=== PATIENT | female | born 1990 | race African-American/Black ===

== ENCOUNTER 2016-09-24 21:55 | Inpatient (IN) | payer OTHER ==
[2016-09-24] MEDS ORDERED: AMPICILLIN 2 GM/100 ML BAG (PRE-DOCKED) IVPB ONE (22:45)
[2016-09-24 23:04] LABS: BASOPHIL 0.2 % (0-2.0); EOSINOPHIL 0.7 % (0-4.5); MCH 29.4 pg (25.7-33.7); MCHC 32.6 g/dl (32.0-36.0); MEAN CELL VOLUME 90.2 fl (80-96); MEAN PLT VOLUME 10.4 fl (7.5-11.1); NEUTROPHILS 77.2 % (42.8-82.8); PLATELET COUNT 158 K/MM3 (134-434); RDW 16.6 % (11.6-15.6); WHITE BLOOD COUNT 11.9 K/mm3 (4.0-10.0)
[2016-09-24 23:15] LABS: INR 0.96 (0.82-1.09); PROTHROMBIN TIME (PATIENT) 10.6 SEC (9.98-11.88)
[2016-09-24] MEDS ORDERED: DEXTROSE 5%-LACTATED RINGERS 1,000 ML IV SCH (23:15)
[2016-09-24] MEDS ORDERED: PROMETHAZINE HCL 25 MG/1 ML VIAL IVPUSH ONE (23:15)
[2016-09-24] MEDS ORDERED: BUTORPHANOL TARTRATE 1 MG/ML VIAL IVPUSH ONE (23:15)
[2016-09-24 23:17] LABS: ACTIVATED PTT 33.5 SECONDS (26.9-34.4)
[2016-09-24 23:25] LABS: CALCIUM 8.9 mg/dL (8.5-10.1); CREATININE 0.6 mg/dL (0.55-1.02)
[2016-09-24 23:32] VITALS: BMI 26.1
[2016-09-24 23:54] LABS: URINE MARIJUANA THC NEGATIVE ng/ml (CUTOFF=50)
[2016-09-25] MEDS ORDERED: FENTANYL/BUPIVACAINE/NS/PF - PCEA - 50 ML DISP.SYRIN EP SCH ×2 (02:33→02:45)
[2016-09-25] MEDS: AMPICILLIN (PRE-DOCKED) 1 GM/100 ML BAG IVPB SCH ×2 (02:45→06:41)
[2016-09-25] MEDS ORDERED: CITRIC ACID/SODIUM CITRATE 30 ML UNIT-DOSE CUP PO ONE (03:00)
[2016-09-25] MEDS ORDERED: ELECTROLYTE-148 SOLN 500 ML IV SCH (03:00)
[2016-09-25] MEDS ORDERED: ELECTROLYTE-148 SOLN 1,000 ML IV SCH (03:30)
--- NOTE | 2016-09-25 08:54 | PN ---
Ante-Partal Exam - Subjective Subjective: Feeling uncomfortable, asking for a top off. Feeling painful contractions. Vital Signs: Vital Signs Temperature 98.4 F 09/25/16 07:00 Pulse Rate 80 09/25/16 08:30 Respiratory Rate 20 09/25/16 08:30 Blood Pressure 138/85 09/25/16 08:30 O2 Sat by Pulse Oximetry (%) 98 09/25/16 08:30 Bleeding: No Headache: No Visual changes: No Right upper quadrant pain: No - Contractions Contractions: Yes Regularity: Regular Intensity: Mod/Strong Monitor Mode: External - Exam during Labor Heart Rate: 145 Variability: Moderate Category: II Monitor Accelerations: Present Monitor Decelerations: None Exam: Vaginal Dilatation (cm): 6 Effacement (%): 90 Amniotic Membrane Status: Ruptured Nitrazine Test: Positive Amniotic Fluid: Clear Presentation: Vertex Station: -2 Remarks: 26 @ 40wk5d in active labor, TOLAC. occasional variable decel's overnight, overall status reassuring, cat 1 FHT. GBS positive on amp. s/p epidural, now requesting top off. AROM 810am, clear, small amount of fluid. -continue to monitor -anticipate
--- NOTE | 2016-09-25 09:00 | HP ---
Past Medical History - Primary Care Physician PCP:: [facility] - Admission Chief Complaint: Painful contractions starting at 5pm History of Present Illness: 26 @ 40wk4d with previous and C/S requesting TOLAC. +contractions, no LOF, VB, +FM. PNC [facility]. ANC c/b elevated 1.free bhcg (99%) on modified sequential screen. 2. left breast lump felt, s/p breast ultrasound, benign appearing GBS positive. Blood type A positive, RPR neg, HepB neg, Rubella Immune, Quant gold neg, HIV NR. SHA by ultrasound 09/20/2016. Prior FT LTCS for distress , prior FT . BTl papers signed, currently undecided. 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: No: Alzheimer's, CVA, Dementia, Migraine, Multiple Sclerosis, Peripheral Neuropathy, Parkinson's, Seizure, Syncope, TIA, Vertigo, Other Cardiovascular: No: AFIB, Aneurysm, Aortic Insufficiency, Aortic Stenosis, CAD, CHF, Deep Vein Thrombosis, HTN, Hyperlipdemia, NH, Mitral Insufficiency, Mitral Stenosis, Murmur, Pulmonary Hypertension, Other Pulmonary: No: Asthma, Bronchitis, Cancer, COPD, O2 Dependent, Pneumonia, Previously Intubated, Pulmonary Embolus, Pulmonary Fibrosis, Sleep Apnea, Other Gastrointestinal: No: Ascites, Cancer, Constipation, Crohn's Disease, Diverticulitis, Diverticulosis, Esophageal Varices, Gastritis, GERD, GI Bleed, Hemorrhoids, Hiatal Hernia, Inflamatory Bowel Disease, Irritable Bowel Disease, Pancreatitis, Peptic Ulcer Disease, Ulcerative Colitis, Other Hepatobiliary: No: Cirrhosis, Cholelithiasis, Cholecystitis, Choledocholithiasis , Hepatitis A, Hepatitis B, Hepatitis C, Other Renal/: No: Renal Failure, Renal Inusuff, BPH, Cancer, Hematuria, Hemodialysis , Neurogenic Bladder, Renal Calculi, UTI, Other Reproductive: No: Ectopic , Endometriosis, Fibroids, PID, Polycystic Ovary Syndrome, Postmenopausal, Other ...: 3 ...Para: 2 ...Term: 2 ...: 0 ...Spon : 0 ...Induced : 0 ...Multiple Gestation: 0 ...LMP: 11/24/15 ...EDC by Sono: 09/20/16 Heme/Onc: No: Anemia, B12 Deficiency, Bleeding Disorder, Cancer, Current Chemotherapy, Current Radiation Therapy, Hemochromatosis, Hypercoaguable State, Myeloproliferative Synd, Sickle Cell Disease, Sickle Cell Trait, Thrombocytopenia, Other Infectious Disease: No: AIDS, C-Diff, Herpes Zoster, HIV, MRSA, STD's, Tuberculosis, VREF, Other Musculoskeletal: No: Bursitis, Chronic low back pain, Hemiparesis, Hemiplegia, Osteoarthritis, Paraplegia, Other Rheumatology: No: Fibromyalgia, Gout, Lupus, Rheumatoid Arthritis, Sarcoidosis, Vasculitis, Other Endocrine: No: Juan's Disease, [place]'s Disease, Diabetes Insipidus, Diabetes Mellitus, Hyperparathyroidism, Hyperthyroidism, Hypothyroidism, Osteopenia, SIADH, Other Dermatology: No: Basal Cell, Cellulitis, Eczema, Melanoma, Psoriasis, Squamous Cell, Other - Past Surgical History Past Surgical History: Yes: Hx Myomectomy: No Hx Transabdominal Cerclage: No - Smoking History Smoking history: Former smoker Have you smoked in the past 12 months: Yes Aproximately how many cigarettes per day: 6 - Alcohol/Substance Use Hx Alcohol Use: No Home Medications - Allergies Allergies/Adverse Reactions: Allergies Allergy/AdvReac Type Severity Reaction Status Date / Time egg Allergy Mild Hives Verified 08/27/16 17:43 milk Allergy Mild Hives Verified 08/27/16 17:43 No Known Drug Allergies Allergy Verified 08/27/16 17:43 nuts Allergy Severe Itching Uncoded 08/27/16 17:43 - Home Medications Home Medications: Ambulatory Orders Vit/Iron Fumarate/FA [ Tablet] 1 each PO DAILY 02/09/16 Family Disease History - Family Disease History Family Disease History: Diabetes: Grandparent, Father (ALCOHOL), Other: Father, Mother (DSA) Review of Systems - Review of Systems Constitutional: reports: No Symptoms Eyes: reports: No Symptoms HENT: reports: No Symptoms Neck: reports: No Symptoms Cardiovascular: reports: No Symptoms Respiratory: reports: No Symptoms Gastrointestinal: reports: No Symptoms Genitourinary: reports: No Symptoms Breasts: reports: No Symptoms Reported Musculoskeletal: reports: No Symptoms Integumentary: reports: No Symptoms Neurological: reports: No Symptoms Endocrine: reports: No Symptoms Hematology/Lymphatic: reports: No Symptoms Physical Exam - Maternity Vital Signs: Vital Signs Temperature 98.4 F 09/25/16 07:00 Pulse Rate 80 09/25/16 08:30 Respiratory Rate 20 09/25/16 08:30 Blood Pressure 138/85 09/25/16 08:30 O2 Sat by Pulse Oximetry (%) 98 09/25/16 08:30 Constitutional: Yes: Well Nourished Eyes: Yes: WNL HENT: Yes: WNL, Atraumatic, Normocephalic Neck: Yes: WNL, Supple Cardiovascular: Yes: WNL, Regular Rate and Rhythm Lungs: Clear to auscultation Breast(s): Yes: WNL - Abdominal Exam/OB Fundal Height: 40 Number of Fetuses: Single Presentation: Vertex Contractions: Yes Regularity: Regular Intensity: Mild/Mod Monitor Mode: External Heart Rate (range): 150 Category: I Accelerations: Uniform Decelerations: None - Vaginal Exam/OB Vaginal Bleediing: No Dilatation (cm): 2 Effacement (%): 50 Amniotic Membrane Status: Intact Presentation: Vertex/Position Station: -3 - Physical Exam Musculoskeletal: Yes: WNL Extremities: Yes: WNL Edema: No Deep Tendon Reflex Grade: Normal +2 ...Motor Strength: WNL - Labs Lab Results: CBC, BMP 09/24/16 22:40 09/24/16 22:40 Hemorrhage Risk Assessment - Risk Factors Medium Risk Factors: Yes: Prior , uterine surgery,or multiple laparotomies Risk Score: 1 Risk Level: Medium Risk Problem List - Problems (1) 40 weeks gestation of Code(s): Z3A.40 - 40 WEEKS GESTATION OF (2) Encounter for trial of labor Code(s): O33.4XX0 - MATERN CARE FOR DISPROPRTN OF MIX MATERN & FETL ORIGIN, [facility] Assessment/Plan [id number] @ 40wk4d for TOLAC. GBS positive. Intact. status reassuring, cat 1 FHT. VSS. AF. -Admit to L&D -Informed consent obtained for TOLAC -anesthesia as per patient request -GBS ppx -labs -EFM, Dell -anticipate
[2016-09-25] MEDS ORDERED: AMPICILLIN - 100 ML IVPB ONE (09:08)
[2016-09-25] MEDS ORDERED: DEXTROSE 5%-LACTATED RINGERS 1,000 ML IV SCH (09:15)
[2016-09-25] MEDS: D5W-LR W/ 20 UNITS OXYTOCIN 1,000 ML IV SCH ×2 (09:47→14:44)
[2016-09-25] MEDS ORDERED: ACETAMINOPHEN 325 MG TABLET (FP) PO PRN (10:12)
[2016-09-25] MEDS ORDERED: WITCH HAZEL 50% (TUCKS) 40 PAD/JAR PAD TP PRN (10:12)
[2016-09-25] MEDS ORDERED: BENZOCAINE 20% 57 GM BOTTLE TP PRN (10:12)
[2016-09-25] MEDS ORDERED: BISACODYL 10 MG SUPP.RECT RC PRN (10:12)
[2016-09-25] MEDS ORDERED: METHYLERGONOVINE MALEATE 0.2 MG/1 ML AMP IM PRN (10:12)
[2016-09-25] MEDS ORDERED: BENZOCAINE 28 GM HEMORRHOIDAL OINTMENT TP PRN (10:12)
--- NOTE | 2016-09-25 10:20 | PN ---
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 Head delivered followed by body. Cord clamped and cut, blood taken for cord gases. Placenta delivered intact, spontaneously. 's 8/9.
[2016-09-25] MEDS: IBUPROFEN 600 MG TABLET (FP) PO PRN (11:13)
[2016-09-25] MEDS ORDERED: AMPICILLIN - 100 ML IVPB SCH (13:09)
[2016-09-26] MEDS: IBUPROFEN 600 MG TABLET (FP) PO PRN ×2 (01:48→22:07)
--- NOTE | 2016-09-26 07:05 | PN ---
Post Progress Note - Subjective Subjective: Doing well, no complaints. Ambulating, tolerating regular diet, pain well controlled, voiding. Post Day: 1 Type of Delivery: Vital Signs: Vital Signs Temperature 98.3 F 09/26/16 05:57 Pulse Rate 106 H 09/26/16 05:57 Respiratory Rate 18 09/26/16 05:57 Blood Pressure 101/62 09/26/16 05:57 O2 Sat by Pulse Oximetry (%) 100 09/25/16 09:30 Uterus: Yes: Fundus Firm, Fundus below umbilicus Abdomen/GI: Yes: Abdomen soft, Passing flatus, Tolerating PO Lochia: Yes: Rubra Lochia, amount: Small Extremities: Yes: Calves non-tender Perineum: Yes: Intact Activity: Ambulating - Labs Labs: CBC WBC 11.9 K/mm3 (4.0-10.0) H D 09/24/16 22:40 RBC 4.07 M/mm3 (3.60-5.2) 09/24/16 22:40 Hgb 12.0 GM/dL (10.7-15.3) 09/24/16 22:40 Hct 36.8 % (32.4-45.2) 09/24/16 22:40 MCV 90.2 fl (80-96) 09/24/16 22:40 MCHC 32.6 g/dl (32.0-36.0) 09/24/16 22:40 RDW 16.6 % (11.6-15.6) H D 09/24/16 22:40 Plt Count 158 K/MM3 (134-434) 09/24/16 22:40 MPV 10.4 fl (7.5-11.1) D 09/24/16 22:40 Neutrophils % 77.2 % (42.8-82.8) D 09/24/16 22:40 Lymphocytes % 14.5 % (8-40) D 09/24/16 22:40 Monocytes % 7.4 % (3.8-10.2) 09/24/16 22:40 Eosinophils % 0.7 % (0-4.5) 09/24/16 22:40 Basophils % 0.2 % (0-2.0) 09/24/16 22:40 Problem List - Problems (1) 40 weeks gestation of Code(s): Z3A.40 - 40 WEEKS GESTATION OF (2) Encounter for trial of labor Code(s): O33.4XX0 - MATERN CARE FOR DISPROPRTN OF MIX MATERN & FETL ORIGIN, [facility] Assessment/Plan 26yoP3 PPD#1 s/p . Doing well. VSS. AF. -routine care -ambulate -regular diet -PO pain medication -d/c home PPD#2
[2016-09-26 08:12] LABS: BASOPHIL 0.3 % (0-2.0); EOSINOPHIL 0.9 % (0-4.5); MCH 29.7 pg (25.7-33.7); MCHC 32.7 g/dl (32.0-36.0); MEAN CELL VOLUME 90.6 fl (80-96); MEAN PLT VOLUME 9.7 fl (7.5-11.1); NEUTROPHILS 81.7 % (42.8-82.8); PLATELET COUNT 135 K/MM3 (134-434); RDW 16.7 % (11.6-15.6); WHITE BLOOD COUNT 13.5 K/mm3 (4.0-10.0)
[2016-09-26] MEDS ORDERED: DIPHTH,PERTUSS(ACELL),TET 0.5 ML DISP.SYRIN IM ONE (10:00)
[2016-09-26] MEDS ORDERED: SENNOSIDES/DOCUSATE COMBO (SENNA PLUS) TABLET (UD) PO PRN (22:00)
--- NOTE | 2016-09-27 09:11 | DS ---
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 Vital Signs: Vital Signs Temperature 99.1 F 09/26/16 22:05 Pulse Rate 84 09/26/16 22:05 Respiratory Rate 20 09/26/16 22:05 Blood Pressure 110/64 09/26/16 22:05 O2 Sat by Pulse Oximetry (%) 100 09/25/16 09:30 Constitutional: Yes: Well Nourished Eyes: Yes: WNL HENT: Yes: WNL, Atraumatic, Normocephalic Neck: Yes: WNL Cardiovascular: Yes: WNL, Regular Rate and Rhythm Respiratory: Yes: WNL, Regular, CTA Bilaterally Gastrointestinal: Yes: WNL ...Rectal Exam: Yes: WNL Renal/: Yes: WNL External Genitalia: Yes: Normal Uterus: Yes: Normal ....Post : Yes: Uterus firm, Uterus non-tender Breast(s): Yes: WNL Musculoskeletal: Yes: WNL Edema: No Integumentary: Yes: WNL Neurological: Yes: WNL ...Motor Strength: WNL Psychiatric: Yes: WNL Labs: CBC, BMP 09/26/16 07:30 09/24/16 22:40 Delivery - Delivery Vaginal Delivery: No Problems Type of Anesthesia: Epidural Episiotomy/Laceration: None EBL (cc): 250 Delivery, Single - Stages of Labor Date 1st Stage Initiatied: 09/24/16 Time 1st Stage Initiated: 17:00 Date 2nd Stage Initiated: 09/25/16 Time 2nd Stage Initiated: 09:30 Date of Delivery: 09/25/16 Time of Delivery: 09:42 Time Placenta Delivered: 09:47 Placenta: Yes: Spontaneous - Condition of 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 Head delivered followed by body. Cord clamped and cut, blood taken for cord gases. Placenta delivered intact, spontaneously. 's 8/9. course uneventful. Discharged PPD#2. f/u in the clinic in 6 weeks for check Discharge Summary Reason For Visit: LABOR ADMIT Current Active Problems 40 weeks gestation of (Acute) Encounter for trial of labor (Acute) Condition: Good - Instructions Diet, Activity, Other Instructions: Post Instructions DIET: Continue good diet high in protein, calcium, and iron rich foods. Drink at least eight (8) glasses of water daily in addition to other fluids. _x__ Regular diet MEDICATIONS: Continue vitamins and iron as previously directed. Motrin and Tylenol may be taken for minor discomfort. ACTIVITY: Mild to moderate exercise may be started in two (2) weeks. Take frequent rest periods. Resume normal activity after six (6) week check up. WOUND CARE OF OPERATIVE SITE: Continue use of perineal bottle until vaginal discharge stops. Keep area clean. Shower daily. Keep abdominal wound dry. Report any drainage or redness to physician. Tub baths, tampons and douches are not permitted for 6 weeks. _x__ Bottle feeding BREAST CARE: (For those that are not ): If engorgement occurs: Wear tight fitting bra. Take Tylenol or Motrin for pain. Apply cold packs (ice in bags to each breast ) FAMILY PLANNING: There are many control alternatives to pursue and they should be discussed at your first office visit. You may resume sexual activity after your six (6) week check up. (Remember, is not a contraceptive) NEXT PHYSICIAN APPOINTMENT: Be certain to call for a six (6) week appointment, unless otherwise directed. Call Clinic or got to Emergency Dept if you have any of the following: Heavy vaginal bleeding Painful urination Leg pain Unusual odor noted to vaginal bleeding High fever Red streaking noted on breast Referrals: Kierra Ballard MD [Staff Physician] - Disposition: HOME - Home Medications Comprehensive Discharge Medication List: Ambulatory Orders Vit/Iron Fumarate/FA [ Tablet] 1 each PO DAILY 02/09/16 Ibuprofen [Motrin -] 600 mg PO QID #28 tablet 09/25/16
[2016-09-27 10:34] VITALS: BP 112/62; PULSE 71; TEMP 97.9
== END 2016-09-27 13:26 | disposition home or self-care (01) | DRG 560 ==
LOC: JDEL 21:55 → JLDR 22:25 → J3W 09-25 13:03
PROVIDERS: ADMIT Obstetrics & Gynecology; ATTEND Obstetrics & Gynecology
PROC: 10E0XZZ Delivery of Products of Conception, External Approach (ICD-10-PCS; principal; 2016-09-25)
DX: O48.0 Post-term pregnancy (principal); Z3A.40 40 weeks gestation of pregnancy; Z37.0 Single live birth
CPT/HCPCS: 36415; 59409; 80048; 80307; 85025; 85610; 85730; 86593; 86850; 86900; 86901; 90715

== ENCOUNTER 2017-01-10 19:45 | Inpatient (IN) | payer OTHER ==
[2017-01-10 21:44] VITALS: BMI 21.1
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
[2017-01-10] MEDS ORDERED: diphenhydrAMINE HCL 50 MG CAPSULE PO PRN (22:37)
[2017-01-10] MEDS ORDERED: IBUPROFEN 400 MG TABLET (FP) PO PRN (22:37)
[2017-01-10] MEDS ORDERED: chlordiazePOXIDE HCL 25 MG CAPSULE PO PRN (22:37)
[2017-01-10] MEDS ORDERED: guaiFENesin/D-METHORPHAN HB 10 ML UNIT-DOSE CUPS PO PRN (22:37)
[2017-01-10] MEDS ORDERED: P-EPHED 60MG/TRIPROLIDI 2.5MG TABLET PO PRN (22:37)
[2017-01-10] MEDS ORDERED: hydrOXYzine PAMOATE 50 MG CAPSULE (FP) PO PRN (22:37)
[2017-01-10] MEDS ORDERED: MAGNESIUM CITRATE 300 ML BOTTLE PO PRN (22:37)
[2017-01-10] MEDS ORDERED: MENTHOL/PHENOL 1 EACH UD MM PRN (22:37)
[2017-01-10] MEDS ORDERED: NICOTINE 10 MG CARTRIDGE (INHALER) IH PRN (22:37)
[2017-01-10] MEDS ORDERED: LOPERAMIDE HCL 2 MG CAPSULE PO PRN (22:37)
[2017-01-10] MEDS ORDERED: MAG HYDROX/AL HYDROX/SIMETH 30 ML UNIT-DOSE CUP PO PRN (22:37)
[2017-01-10] MEDS ORDERED: ACETAMINOPHEN 325 MG TABLET (FP) PO PRN (22:37)
[2017-01-10] MEDS ORDERED: MAGNESIUM HYDROX 2400MG/30ML ORAL SUSPENSION 30 ML CUP PO PRN (22:37)
[2017-01-10] MEDS: chlordiazePOXIDE HCL 25 MG CAPSULE PO SCH (23:58)
[2017-01-11] MEDS: chlordiazePOXIDE HCL 25 MG CAPSULE PO SCH ×3 (05:53→17:00)
[2017-01-11] MEDS ORDERED: PRENATAL VITAMINS W/ FOLIC ACID TABLET (FP) PO SCH (10:00)
[2017-01-11] MEDS ORDERED: NICOTINE 14 MG/24 HOURS TOPICAL PATCH TD SCH (10:00)
[2017-01-11 10:05] LABS: MCH 31.4 pg (25.7-33.7); MCHC 33.3 g/dl (32.0-36.0); MEAN CELL VOLUME 94.3 fl (80-96); PLATELET COUNT 159 K/MM3 (134-434); RDW 14.5 % (11.6-15.6); WHITE BLOOD COUNT 4.6 K/mm3 (4.0-10.0)
--- NOTE | 2017-01-11 10:36 | PN ---
S CIWA - CIWA Score Nausea/Vomitin-No Nausea/No Vomiting Muscle Tremors: 4-Moderate,w/Arms Extend Anxiety: 3 Agitation: 4-Moderately Restless Paroxysmal Sweats: 3 Orientation: 0-Oriented Tacttile Disturbances: 0-None Auditory Disturbances: 0-None Visual Disturbances: 0-None Headache: 0-None Present CIWA-Ar Total Score: 14 BHS Progress Note (SOAP) Subjective: agitation sweats interrupted sleep body aches irritable Objective: 01/11/17 10:38 Vital Signs Temperature 96.8 F 01/11/17 10:00 Pulse Rate 60 01/11/17 10:00 Respiratory Rate 20 01/11/17 10:00 Blood Pressure 116/69 01/11/17 10:00 O2 Sat by Pulse Oximetry (%) Laboratory Tests 01/11/17 01/11/17 07:00 07:00 WBC 4.6 D RBC 4.12 Hgb 12.9 D Hct 38.8 D MCV 94.3 MCHC 33.3 RDW 14.5 D Plt Count 159 MPV 9.0 Sodium 140 Potassium 3.2 L Chloride 104 low potassium 3.2; replenish with k-dur 20meq x 4days rest of labs pending awake/alert ambulating no acute distress Assessment: 01/11/17 10:45 withdrawal sx Plan: continue detox increase fluids k-dur 20meq x 4 days labs pending
[2017-01-11] MEDS ORDERED: POTASSIUM CHLORIDE TABS 20 MEQ TABLET.ER (FP) PO SCH (11:00)
[2017-01-11 11:28] LABS: ALBUMIN 3.7 g/dl (3.4-5.0); ALK PHOS 101 U/L (45-117); ANION GAP 11 (8-16); BILIRUBIN,TOTAL 0.9 mg/dL (0.2-1.0); CALCIUM 8.9 mg/dL (8.5-10.1); CO2 25 mmol/L (21-32); CREATININE 0.7 mg/dL (0.55-1.02); GLUCOSE,RANDOM 81 mg/dL (74-106); SGOT/AST 24 U/L (15-37); SGPT/ALT 26 U/L (12-78); TOT PROT 6.7 g/dl (6.4-8.2)
--- NOTE | 2017-01-11 11:56 | EKG ---
Test Reason : Blood Pressure : / mmHG Vent. Rate : 053 BPM Atrial Rate : 053 BPM P-R Int : 118 ms QRS Dur : 082 ms QT Int : 490 ms P-R-T Axes : 051 074 072 degrees QTc Int : 459 ms SINUS BRADYCARDIA BORDERLINE ECG NO PREVIOUS ECGS AVAILABLE CLINICAL CORRELATION IS RECOMMENDED Confirmed by NEREIDA ADAME, HARRISON ([id number]) on 01/11/2017 11:55:57 AM Referred By: Confirmed By:HARRISON PADRON MD
--- NOTE | 2017-01-11 12:14 | CONSULT ---
[facility] Psychiatric Consult - Data Date of interview: 01/11/17 Admission source: [facility] Identifying data: Readmission to [facility] for this 26 y/o AA female seeking detox treatment for alcohol and marijuana dependence.Patient is single,a mother of three,domiciled,currently unemployed (just lost employment) and supported on personal savings. Substance Abuse History: - Smoking Cessation. Smoking history: Current some day smoker. Have you smoked in the past 12 months: Yes. Aproximately how many cigarettes per day: 6. Cigars Per Day: 0. Hx Chewing Tobacco Use: No. Initiated information on smoking cessation: Yes. 'Breaking Loose' booklet given : 01/10/17. - Substance & Tx. History. Hx Alcohol Use: Yes. Hx Substance Use : No. Substance Use Type: Alcohol. Hx Substance Use Treatment: Yes. - Substances Abused. Alcohol. Frequency: 3-6 times per week. Amount used: 6 PINTS OF LIQUOR. Age of first use: 13. Date of Last Use: 01/09/17. Confirmed by patient. Medical History: Patient endorses good general health.Noted history of surgery for pyloric stenosis (childhood). Psychiatric History: Patient admits to a remote history of a psychiatric hospitalization,at age 14,at [facility].Diagnosed with ADHD.Used to be on Concerta,Ritalin and Wellbutrin.Never followed up with OPD care.Ms Lane indicates that she has stopped taking psychotropic medications since age 15.She denies history of suicide attempts. Physical/Sexual Abuse/Trauma History: Patient denies. Additional Comment: Urine Drug Screen Results: THC-Marijuana.Noted. Mental Status Exam - Mental Status Exam Alert and Oriented to: Time, Place, Person Cognitive Function: Good Patient Appearance: Well Groomed Mood: Hopeful, Euthymic Affect: Appropriate, Normal Range Patient Behavior: Fatigued, Cooperative Speech Pattern: Clear Voice Loudness: Normal Thought Process: Goal Oriented Thought Disorder: Not Present Hallucinations: Denies Suicidal Ideation: Denies Homicidal Ideation: Denies Insight/Judgement: Fair Sleep: Poorly, Difficulty falling asleep Appetite: Good Muscle strength/Tone: Normal Gait/Station: Normal Psychiatric Findings - Problem List ([place] 1, 2,3) (1) Alcohol dependence with uncomplicated withdrawal Current Visit: Yes Status: Acute (2) Cannabis dependence Current Visit: Yes Status: Acute (3) Nicotine dependence Current Visit: Yes Status: Acute Qualifiers: Nicotine product type: cigarettes Substance use status: uncomplicated Qualified Code(s): F17.210 - Nicotine dependence, cigarettes, uncomplicated (4) ADHD (attention deficit hyperactivity disorder) Current Visit: Yes Status: Chronic Comment: History. (5) Insomnia Current Visit: Yes Status: Acute - Initial Treatment Plan Initial Treatment Plan: Psychoeducation.Detoxification.Ambien 5 mg po hs.Patient is made aware of the potential for parasomnias.She agrees with this careplan.Observation.
[2017-01-11 14:07] VITALS: TEMP 98.4
[2017-01-11 14:43] LABS: URINE APPEARANCE CLEAR; URINE BILIRUBIN NEGATIVE (NEGATIVE); URINE BLOOD NEGATIVE (NEGATIVE); URINE COLOR AMBER; URINE GLUCOSE (UA) NEGATIVE (NEGATIVE); URINE KETONE 1+ (NEGATIVE); URINE NITRITE NEGATIVE (NEGATIVE); URINE UROBILINOGEN 4.0 E.U/dl E.U./dl (0.2-1.0)
[2017-01-11 14:55] LABS: URINE LEUK ESTERASE TRACE (NEGATIVE); URINE PROTEIN 1+ (NEGATIVE)
[2017-01-11 15:49] LABS: URINE MUCUS FEW; URINE RBC 1 /hpf (0-3); URINE WBC 11 /hpf (3-5)
[2017-01-11 17:23] VITALS: BP 115/73; PULSE 75
[2017-01-11] MEDS ORDERED: ZOLPIDEM TARTRATE 5 MG TABLET PO PRN (22:00)
[2017-01-11] MEDS ORDERED: THIAMINE HCL 100 MG TABLET (FP) PO SCH (22:00)
[2017-01-11] MEDS ORDERED: chlordiazePOXIDE HCL 25 MG CAPSULE PO SCH (23:00)
[2017-01-12] MEDS ORDERED: chlordiazePOXIDE 5 MG CAPSULE PO SCH (23:00)
[2017-01-13] MEDS ORDERED: chlordiazePOXIDE HCL 10 MG CAPSULE PO SCH (23:00)
== END 2017-01-11 21:55 | disposition left against medical advice (07) | DRG 770 ==
LOC: YASAS 19:45 → Y6N 22:37
PROVIDERS: ADMIT Internal Medicine; ATTEND Internal Medicine
PROC: HZ2ZZZZ Detoxification Services for Substance Abuse Treatment (ICD-10-PCS; principal; 2017-01-11)
DX: F10.230 Alcohol dependence with withdrawal, uncomplicated (principal); F12.20 Cannabis dependence, uncomplicated; F17.210 Nicotine dependence, cigarettes, uncomplicated; F90.9 Attention-deficit hyperactivity disorder, unspecified type
CPT/HCPCS: 36415; 80053; 81003; 81015; 85027; 86593; 93005; 93010

== ENCOUNTER 2017-01-13 19:10 | Emergency (ER) | payer OTHER ==
[2017-01-13 19:34] VITALS: BP 108/66; PULSE 83; TEMP 97.7; BMI 20.5
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
== END 2017-01-13 20:10 | disposition home or self-care (01) ==
LOC: JERFT 19:10
DX: S63.616A Unspecified sprain of right little finger, initial encounter (principal); Y04.2XXA Assault by strike against or bumped into by another person, initial encounter; Y93.89 Activity, other specified; Y92.9 Unspecified place or not applicable; F17.210 Nicotine dependence, cigarettes, uncomplicated
CPT/HCPCS: 73140-TC-RT; 99281-25

== ENCOUNTER 2020-04-07 04:43 | Emergency (ER) | payer OTHER ==
[2020-04-07 04:53] VITALS: BP 121/87; PULSE 72; TEMP 97.1; BMI 20.2
[2020-04-07] MEDS ORDERED: LACTATED RINGERS SOLUTION 1000 ML INFUS.BAG IV ONE (05:05)
[2020-04-07] MEDS ORDERED: ACETAMINOPHEN 325 MG TABLET (FP) PO ONE (05:13)
[2020-04-07] MEDS ORDERED: ACETAMINOPHEN 325 MG TABLET (FP) ONE (05:17)
[2020-04-07 05:39] LABS: BASO % 0.7 % (0-2.0); HEMATOCRIT 35.8 % (32.4-45.2); HEMOGLOBIN 12.2 GM/dL (10.7-15.3); LYMPH % 30.1 % (8-40); MCH 32.5 pg (25.7-33.7); MEAN CELL VOLUME 95.5 fl (80-96); MEAN PLT VOLUME 7.7 fl (7.5-11.1); MONO % 6.7 % (3.8-10.2); NEUT % 60.5 % (42.8-82.8); PLATELET COUNT 225 K/MM3 (134-434); RBC 3.75 M/mm3 (3.60-5.2); RDW 15.1 % (11.6-15.6); WHITE BLOOD COUNT 5.5 K/mm3 (4.0-10.0)
[2020-04-07 05:54] LABS: PH,URINE 6.5 (5.0-8.0); URINE APPEARANCE CLEAR; URINE BILIRUBIN NEGATIVE (NEGATIVE); URINE COLOR YELLOW; URINE GLUCOSE (UA) NEGATIVE (NEGATIVE); URINE KETONE NEGATIVE (NEGATIVE); URINE LEUK ESTERASE NEGATIVE (NEGATIVE); URINE NITRITE NEGATIVE (NEGATIVE); URINE PROTEIN NEGATIVE (NEGATIVE); URINE UROBILINOGEN 0.2 mg/dL (0.2-1.0)
[2020-04-07 06:05] LABS: ALBUMIN 4.1 g/dl (3.4-5.0); BILIRUBIN,TOTAL 0.2 mg/dL (0.2-1); BLOOD UREA NITROGEN 12.1 mg/dL (7-18); CALCIUM 8.5 mg/dL (8.5-10.1); CREATININE 0.7 mg/dL (0.55-1.3); POTASSIUM 3.7 mmol/L (3.5-5.1); TOT PROT 7.6 g/dl (6.4-8.2)
--- NOTE | 2020-04-07 06:32 | PDOC ---
History of Present Illness - General Chief Complaint: Pain Stated Complaint: ABD PAIN/7 WEEKS - History of Present Illness Initial Comments: 04/07/20 06:29 29yo F p/w RLQ pain that radiates down her R leg . She picked up her 3yo child on Tuesday and shortly afterward she started to feel this sharp and achy pain. It is made worse by lying/sitting on her R buttock and is relieved by lying on her L or R side. She has not tried any medicine for the discomfort. Denies trauma or history of trauma to back or leg. 04/10/20 13:40 Past History - Medical History Allergies/Adverse Reactions: Allergies Allergy/AdvReac Type Severity Reaction Status Date / Time egg Allergy Mild Hives Verified 04/07/20 04:52 milk Allergy Mild Hives Verified 04/07/20 04:52 No Known Drug Allergies Allergy Verified 04/07/20 04:52 nuts Allergy Severe Itching Uncoded 04/07/20 04:52 Home Medications: Ambulatory Orders NK [No Known Home Medication] 01/13/17 Anemia: No Asthma: No Cancer: No Cardiac Disorders: No CVA: No COPD: No CHF: No Dementia: No Diabetes: No GI Disorders: No Disorders: No HTN: No Hypercholesterolemia: No Kidney Stones: No Liver Disease: No Seizures: No Thyroid Disease: No Other medical history: LUPUS - Surgical History Abdominal Surgery: Yes (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) Appendectomy: No Cardiac Surgery: No Cholecystectomy: No Lung Surgery: No Neurologic Surgery: No Orthopedic Surgery: No - Reproductive History Is Patient Now?: Yes PID: No - Immunization History Td Vaccination: Yes TDAP Vaccination: Yes Immunization Up to Date: Yes - Psycho-Social/Smoking History Smoking Status: No Smoking History: Never smoked Have you smoked in the past 12 months: Yes Number of Cigarettes Smoked Daily: 6 Cigars Per Day: 0 Information on smoking cessation initiated: No 'Breaking Loose' booklet given: 01/10/17 - Substance Abuse Hx (Audit-C & DAST Scrn) How often the patient has a drink containing alcohol: Never Score: In Men: 4 or > Positive; In Women: 3 or > Positive: 0 Screen Result (Pos requires Nsg. Audit-10AR): Negative In the last yr the pt used illegal drug/Rx for NonMed reason: No Score: Yes response is considered Positive: 0 Screen Result (Positive result requires Nsg. DAST-10): Negative Abd/GI Specific PMHX - Complaint Specific PMHX Hepatitis: No Pancreatitis: No Review of Systems - Review of Systems Able to Perform ROS?: Yes Is the patient limited Irish proficient: No Constitutional: No: Chills, Diaphoresis, Fever HEENTM: No: Double Vision, Nose Congestion, Difficulty Swallowing Respiratory: No: Cough, Shortness of Breath, SOB at Rest Cardiac (ROS): No: Irregular Heart Rate, Lightheadedness, Palpitations ABD/GI: No: Difficulty Swallowing, Nausea, Vomiting : No: Burning, Dysuria, Pain Musculoskeletal: Yes: Back Pain. No: Muscle Weakness Neurological: No: Headache, Numbness, Paresthesia Endocrine: No: Unexplained Weight Gain, Unexplained Weight Loss *Physical Exam - Vital Signs Last Vital Signs Temp Pulse Resp BP Pulse Ox 97.1 F L 72 18 121/87 98 04/07/20 04:50 04/07/20 04:50 04/07/20 04:50 04/07/20 04:50 04/07/20 04:50 - Physical Exam General Appearance: Yes: Nourished, Appropriately Dressed, Mild Distress (uncomfortable when on Left side - currently in position of comfort) HEENT: positive: EOMI, MOY, Normal Voice. negative: Scleral Icterus (R), Scleral Icterus (L) Neck: positive: Trachea midline, Supple. negative: Tender Respiratory/Chest: positive: Lungs Clear, Normal Breath Sounds. negative: Chest Tender Cardiovascular: positive: Regular Rhythm, Regular Rate Gastrointestinal/Abdominal: positive: Normal Bowel Sounds, Soft. negative: Tender, Organomegaly, Pulsatile Mass, Protuberent, Hernia, Mass Musculoskeletal: positive: Other (Tender at the L SI joint. Pain reproducible with palpation). negative: CVA Tenderness (R), CVA Tenderness (L) Extremity: positive: Normal Capillary Refill, Normal Inspection, Pelvis Stable Integumentary: positive: Normal Color, Dry, Warm Neurologic: positive: Fully Oriented, Alert, Normal Mood/Affect ED Treatment Course - LABORATORY CBC & Chemistry Diagram: 04/07/20 05:26 04/07/20 05:26 - ADDITIONAL ORDERS Additional order review: Laboratory Results 08/31/20 08/31/20 05:30 05:26 Sodium 136 Potassium 3.7 Chloride 106 Carbon Dioxide 24 Anion Gap 7 L BUN 12.1 Creatinine 0.7 Est GFR (CKD-EPI)AfAm 133.81 Est GFR (CKD-EPI)NonAf 115.45 Random Glucose 87 Calcium 8.5 Total Bilirubin 0.2 AST 32 ALT 53 Alkaline Phosphatase 97 Total Protein 7.6 Albumin 4.1 Lipase 95 Urine Color Yellow Urine Appearance Clear Urine pH 6.5 Ur Specific [place] 1.020 Urine Protein Negative Urine Glucose (UA) Negative Urine Ketones Negative Urine Blood Negative Urine Nitrite Negative Urine Bilirubin Negative Urine Urobilinogen 0.2 Ur Leukocyte Esterase Negative 04/07/20 05:26 RBC 3.75 MCV 95.5 MCHC 34.0 RDW 15.1 MPV 7.7 D Neutrophils % 60.5 D Lymphocytes % 30.1 D Monocytes % 6.7 Eosinophils % 2.0 D Basophils % 0.7 - Medications Given in the ED: ED Medications Discontinued Medications Generic Name Dose Route Start Last Admin Trade Name Freq PRN Reason Stop Dose Admin Acetaminophen 650 mg 04/07/20 05:13 04/07/20 05:18 Tylenol - PO 04/07/20 05:14 650 mg ONCE ONE Administration Lactated Ringer's 1,000 ml 04/07/20 05:05 04/07/20 05:35 Lactated Ringers Solution IV 04/07/20 05:06 1,000 ml ONCE ONE Administration Discharge - Discharge Information Problems reviewed: Yes Clinical Impression/Diagnosis: RLQ abdominal pain Qualifiers: Weeks of gestation: less than 8 weeks Qualified Code(s): Z3A.01 - Less than 8 weeks gestation of Condition: Fair Disposition: HOME - Admission No - Follow up/Referral Referrals: Mckenna Angel MD [Primary Care Provider] - - Patient Discharge Instructions Patient Printed Discharge Instructions: DI for Abdominal Pain-Adult, DI for Abdominal Pain -- Early Additional Instructions: You came to the ED with pain in the right lower part of your abdomen. What we did: We measured your blood levels, including of your hormone beta-hCG, completed a pelvic exam, and we performed an ultrasound. What we found: your blood work is all within normal limits, which is reassuring. Your beta-hCG is 49,950, which is reassuring as well. The ultrasounds revealed an intra-uterine (normal) with activity suggestive of a live fetus. Congratulations. We were not able to isolate the cause of your discomfort. Please come back to the emergency department if you have any worsening of symptoms and follow up with your OBGYN at [facility] within 48 hours of leaving here today. - Post Discharge Activity
--- NOTE | 2020-04-07 06:55 | PDOC ---
Attending Attestation - Resident Resident Name: Lexx Smith - ED Attending Attestation I have performed the following: I have examined & evaluated the patient, The case was reviewed & discussed with the resident, I agree w/resident's findings & plan, Exceptions are as noted - HPI HPI: 04/07/20 06:51 29 yo F currently currently 7 weeks by LMp 02/11 here with c/o; right sided pelvic pain. came on suddenly. sharp radiating to her thigh. no n/v no loss of fluid. no vaginal bleeding. no h/o renal colic. no prior abd surgeries other than c section. has not seen ob yet this no urinary complaints. no hematuria. no mod factors. - Physicial Exam PE: 04/07/20 06:52 awake alert lungs ctab no wheeze no crackles. no mrg abd soft mild rlq ttp. no palp hernia. pelvic scant dc in vaginal vault. no adnexal tenderness. no cmt. ext wwp. skin warm and dry. alert oriented x 3. - Medical Decision Making 04/07/20 06:53 29 yo F at 7 weeks here wiht right sided abd pain. differential appendicitis, ovarian cyst, ectopic, pain of . uti, renal colic focused ED us tv performed, CRL 6 wks 3 days, no free fluid, no ovarian cyst or free fluid. renal eval no hydronephrosis. labs normal ua negative. appendicitis unlikley based on presenation and type of pain. will dc home get close followup 48 hours. Discharge - Discharge Information Problems reviewed: Yes Clinical Impression/Diagnosis: RLQ abdominal pain Qualifiers: Weeks of gestation: less than 8 weeks Qualified Code(s): Z3A.01 - Less than 8 weeks gestation of Condition: Fair Disposition: HOME - Follow up/Referral Referrals: Mckenna Angel MD [Primary Care Provider] - - Patient Discharge Instructions Patient Printed Discharge Instructions: DI for Abdominal Pain-Adult, DI for Abdominal Pain -- Early Additional Instructions: You came to the ED with pain in the right lower part of your abdomen. What we did: We measured your blood levels, including of your hormone beta-hCG, completed a pelvic exam, and we performed an ultrasound. What we found: your blood work is all within normal limits, which is reassuring. Your beta-hCG is 49,950, which is reassuring as well. The ultrasounds revealed an intra-uterine (normal) with activity suggestive of a live fetus. Congratulations. We were not able to isolate the cause of your discomfort. Please come back to the emergency department if you have any worsening of symptoms and follow up with your OBGYN at [facility] within 48 hours of leaving here today. - Post Discharge Activity
== END 2020-04-07 07:00 | disposition home or self-care (01) ==
LOC: JER 04:43
DX: R10.31 Right lower quadrant pain (principal); Z3A.01 Less than 8 weeks gestation of pregnancy
CPT/HCPCS: 36415; 76817; 80053; 81003; 83690; 84702; 85025; 87086; 99283-25

== ENCOUNTER 2020-06-22 14:51 | Emergency (ER) | payer OTHER ==
[2020-06-22 14:59] VITALS: BMI 21.4
[2020-06-22] MEDS ORDERED: SODIUM CHLORIDE 1,000 ML IV STA (15:19)
[2020-06-22] MEDS ORDERED: FAMOTIDINE 20 MG/50 ML IVPB 20 MG/50 ML MG IVPB ONE ×2 (15:29→15:49)
[2020-06-22] MEDS ORDERED: methylPREDNISolone NA SUCC 125 MG/2 ML VIAL IVPB ONE (15:30)
[2020-06-22] MEDS ORDERED: methylPREDNISolone NA SUCC 40 MG/1 ML VIAL ONE (15:48)
[2020-06-22 16:50] LABS: BASO % 0.2 % (0-2.0); EOS % 1.6 % (0-4.5); HEMATOCRIT 35.8 % (32.4-45.2); LYMPH % 20.9 % (8-40); MCH 32.5 pg (25.7-33.7); MCHC 33.4 g/dl (32.0-36.0); MEAN CELL VOLUME 97.3 fl (80-96); MEAN PLT VOLUME 8.5 fl (7.5-11.1); MONO % 5.8 % (3.8-10.2); NEUT % 71.5 % (42.8-82.8); PLATELET COUNT 230 K/MM3 (134-434); RBC 3.68 M/mm3 (3.60-5.2); RDW 13.4 % (11.6-15.6); WHITE BLOOD COUNT 7.3 K/mm3 (4.0-10.0)
[2020-06-22 16:54] LABS: CALCIUM 8.2 mg/dL (8.5-10.1)
[2020-06-22 16:55] LABS: BLOOD UREA NITROGEN 11.3 mg/dL (7-18)
[2020-06-22 16:58] LABS: CREATININE 0.5 mg/dL (0.55-1.3)
[2020-06-22 17:00] LABS: BILIRUBIN,TOTAL 0.3 mg/dL (0.2-1); TOT PROT 6.9 g/dl (6.4-8.2)
[2020-06-22 18:04] VITALS: BP 105/60; PULSE 81; TEMP 98.7
== END 2020-06-22 20:08 | disposition home or self-care (01) ==
LOC: JER 14:51
PROC: 3E033GC Introduction of Other Therapeutic Substance into Peripheral Vein, Percutaneous Approach (ICD-10-PCS; principal; 2020-06-22)
PROC: 3E033GC Introduction of Other Therapeutic Substance into Peripheral Vein, Percutaneous Approach (ICD-10-PCS; 2020-06-22)
PROC: 3E033GC Introduction of Other Therapeutic Substance into Peripheral Vein, Percutaneous Approach (ICD-10-PCS; 2020-06-22)
PROC: 3E0337Z Introduction of Electrolytic and Water Balance Substance into Peripheral Vein, Percutaneous Approach (ICD-10-PCS; 2020-06-22)
DX: T78.40XA Allergy, unspecified, initial encounter (principal); Z3A.18 18 weeks gestation of pregnancy
CPT/HCPCS: 36415; 80053; 85025; 93005; 93010; 99284-25

== ENCOUNTER 2020-07-03 20:28 | Emergency (ER) | payer OTHER ==
[2020-07-03 20:34] VITALS: BP 112/58; PULSE 97; TEMP 98.2; BMI 21.4
== END 2020-07-03 21:09 | disposition home or self-care (01) ==
LOC: JERFT 20:28
DX: S70.12XA Contusion of left thigh, initial encounter (principal)
CPT/HCPCS: 99283-25